=== PATIENT | male | born 1950 | race Asian ===

== ENCOUNTER 2017-03-04 01:47 | Emergency (ER) | payer BC ==
[2017-03-04 03:03] LABS: UA SPECIFIC GRAVITY 1.025 (1.005-1.035); microscopic required? YES; urine erythrocyte 1+ (NEGATIVE)
[2017-03-04 03:10] LABS: CALCIUM 9.2 mg/dL (8.5-10.1); CARBON DIOXIDE 22.5 mmol/L (21-32); CHLORIDE SERUM 108 mmol/L (98-107); CREATININE SERUM 0.9 mg/dL (0.7-1.3); GFR1 > 60 mL/min; GLUCOSE SERUM 144 mg/dL (74-106); POTASSIUM SERUM 3.8 mmol/L (3.5-5.1); SODIUM SERUM 146 mmol/L (136-145)
[2017-03-04 03:14] LABS: ALBUMIN 4.2 g/dL (3.4-5.0); ALKALINE PHOSPHATASE 140 U/L (46-116); ALT/SGPT 26 U/L (16-63); AST/SGOT 22 U/L (15-37); LIPASE 73 IU/L (73-393)
[2017-03-04 03:17] LABS: BASOPHIL % 3.5 % (0-2); PLATELET COUNT 485 x10^3mcL (130-400); RED CELL DISTRIBUTION WIDTH 14.6 % (11.5-14.5)
[2017-03-04 04:14] VITALS: BP 170/114
== END 2017-03-04 04:14 | disposition home or self-care (01) ==
LOC: ED 01:47
PROVIDERS: Emergency Medicine
DX: N39.0 Urinary tract infection, site not specified (principal); R10.84 Generalized abdominal pain; R11.2 Nausea with vomiting, unspecified; Z88.0 Allergy status to penicillin
CPT/HCPCS: 83880; J1170; J2270; J2405

== ENCOUNTER 2017-03-05 23:15 | Inpatient (IN) | payer BC ==
[~2017-03-05] VITALS: Ht 165.1 cm; Wt 60.3 kg
[2017-03-06] VITALS (7 sets, daily range): BP systolic 120–220; BP diastolic 57–114
[2017-03-06 00:49] LABS: BASOPHIL % 0.2 % (0-2)
[2017-03-06 00:50] LABS: PLATELET COUNT 417 x10^3mcL (130-400); RED CELL DISTRIBUTION WIDTH 14.9 % (11.5-14.5)
[2017-03-06 00:58] LABS: CALCIUM 9.5 mg/dL (8.5-10.1); CARBON DIOXIDE 23.3 mmol/L (21-32); CHLORIDE SERUM 104 mmol/L (98-107); CREATININE SERUM 0.8 mg/dL (0.7-1.3); GFR1 > 60 mL/min; GLUCOSE SERUM 121 mg/dL (74-106); POTASSIUM SERUM 3.3 mmol/L (3.5-5.1); SODIUM SERUM 143 mmol/L (136-145)
[2017-03-06 01:03] LABS: ALBUMIN 4.4 g/dL (3.4-5.0); ALKALINE PHOSPHATASE 155 U/L (46-116); ALT/SGPT 28 U/L (16-63); AST/SGOT 19 U/L (15-37); BILIRUBIN TOTAL 0.8 mg/dL (0.20-1.00); LIPASE 81 IU/L (73-393); TOTAL PROTEIN, SERUM 8.4 g/dL (6.4-8.2)
[2017-03-06] MEDS ORDERED: ZOFRAN8 MG PO (03:01)
[2017-03-06] MEDS ORDERED: CIPRO250 MG (03:02)
[2017-03-06] MEDS ORDERED: NEXIUM40 MG (03:02)
[2017-03-06] MEDS ORDERED: MOT600 (03:02)
[2017-03-06] MEDS ORDERED: MELOXICAM7.5 M1 (03:02)
[2017-03-06] MEDS ORDERED: CARAFATE1 GM (03:02)
[2017-03-06] MEDS ORDERED: NORCO1 TA2 PO (03:02)
[2017-03-06] MEDS ORDERED: ZOLOFT25 MG (03:03)
[2017-03-06 06:09] LABS: AMPHETAMINE QUAL UR NONE DETECTED (NEG <=1000)
[2017-03-06 06:11] LABS: UA SPECIFIC GRAVITY 1.015 (1.005-1.035); microscopic required? YES; urine erythrocyte TRACE (NEGATIVE)
[2017-03-06 06:58] LABS: T3 TOTAL 0.97 ng/mL
[2017-03-06 07:20] LABS: MAGNESIUM 2.3 mg/dL (1.8-2.4); PHOSPHOROUS 3.2 mg/dL (2.5-4.9)
[2017-03-06 07:22] LABS: CHOLESTEROL/HDL RATIO 4.8
[2017-03-06 08:02] LABS: FREE T4 1.39 ng/dL (0.76-1.46); FREE THYROXINE INDEX 4.6 ug/dL (1.4-4.5)
[2017-03-07 05:37] VITALS: BP 129/57
[2017-03-07 07:25] LABS: BASOPHIL % 0.2 % (0-2); PLATELET COUNT 355 x10^3mcL (130-400)
[2017-03-07 07:49] LABS: CALCIUM 8.4 mg/dL (8.5-10.1); CARBON DIOXIDE 22.6 mmol/L (21-32); CHLORIDE SERUM 105 mmol/L (98-107); CREATININE SERUM 0.7 mg/dL (0.7-1.3); GFR1 > 60 mL/min; GLUCOSE SERUM 85 mg/dL (74-106); MAGNESIUM 1.8 mg/dL (1.8-2.4); PHOSPHOROUS 2.8 mg/dL (2.5-4.9); POTASSIUM SERUM 3.4 mmol/L (3.5-5.1); SODIUM SERUM 139 mmol/L (136-145)
[2017-03-07 07:55] LABS: RED CELL DISTRIBUTION WIDTH 15.4 % (11.5-14.5)
[2017-03-07 09:30] VITALS: BP 130/76
[2017-03-07 14:00] VITALS: BP 149/88
[2017-03-07 17:35] VITALS: BP 159/85
[2017-03-07] MEDS ORDERED: CIPROFLOXACIN500 MG PO (19:33)
[2017-03-07] MEDS ORDERED: LAC PO (19:34)
[2017-03-07] MEDS ORDERED: FLA500 PO (19:34)
[2017-03-07] MEDS ORDERED: FIBERCON625 MG PO (19:35)
[2017-03-07 19:56] VITALS: BP 159/85
[2017-03-07 21:02] VITALS: BP 156/71
== END 2017-03-07 21:35 | disposition home or self-care (01) | DRG 871 ==
LOC: ED 23:15 → DU 03-06 03:03
PROVIDERS: Emergency Medicine; ADMIT Family Medicine Sports Medicine
DX: A41.9 Sepsis, unspecified organism (principal); N17.0 Acute kidney failure with tubular necrosis; I42.9 Cardiomyopathy, unspecified; N39.0 Urinary tract infection, site not specified; K52.9 Noninfective gastroenteritis and colitis, unspecified; Z88.0 Allergy status to penicillin; Z90.49 Acquired absence of other specified parts of digestive tract; F32.9 Major depressive disorder, single episode, unspecified; K21.9 Gastro-esophageal reflux disease without esophagitis; E87.6 Hypokalemia; E78.5 Hyperlipidemia, unspecified; D47.3 Essential (hemorrhagic) thrombocythemia; F41.9 Anxiety disorder, unspecified; N28.1 Cyst of kidney, acquired; R31.9 Hematuria, unspecified
CPT/HCPCS: 82962; 83880; 84439; J1170; J1885; J1956; J2270; J2405; J3490; J7030; Q0092